=== PATIENT | male | born 2005 | race African-American/Black ===

== ENCOUNTER 2024-02-12 01:14 | Emergency (ER) | payer OTHER ==
[2024-02-12] MEDS ORDERED: Ibuprofen 800 MG TAB ONE (02:47)
== END 2024-02-12 03:08 | disposition home or self-care (01) ==
LOC: ERS 01:14
DX: S80.01XA Contusion of right knee, initial encounter (principal); V49.9XXA Car occupant (driver) (passenger) injured in unspecified traffic accident, initial encounter; Y93.89 Activity, other specified
CPT/HCPCS: 99284